=== PATIENT | female | born 1980 | race Caucasian/White ===

== ENCOUNTER → 2017-08-30 | Outpatient (REF) ==
[~2017-08-30] MED LIST: ACE500 PO; ALB17R INH; ASPI-1017 PO; CEP500 PO; CIPR-326 PO; CLI150 PO; CYCL10TA29 PO; DESV50TA9 PO; DIC10 PO; DIPH-740 PO; DM H PO; DM H180L19 PO; DOX100 PO; DOXY-179 PO; DOXY150T6 PO; ERYT-83 PO; ESGIC; FERR-53 PO; GABA-549 PO; GUAI100L15 PO; GUAI480S48 PO; HYDEL PO; HYDR-4228 PO; HYDR473S4 PO; IBU600 PO; IBU800 PO; IBUP-1618 PO; IBUP-56 PO; IBUP800T37 PO; KET10 PO; LAN30PT FT; LEV500 PO; LOR5 PO; LOR5/325 PO; MELO-149 PO; METH4TAB66 PO; METR-160 PO; MULT1CAP59 PO; NAP500; NAPR-1043 PO; NAPR-723 PO; NAPR-744 PO; NIC10R INH; NO ROUTINE MEDS; OMEP20CA68 PO; ONDA4TAB PO; PEN250 PO; PER PO; PHEN120S16 PO; PRE20 PO; PRED20TA6 PO; PRO25 PO; PSEU120T71 PO; TRA50 PO; TRAM-420 PO; TRAZ-156 PO; TRAZ150T8 PO; TRI05T TP; VALA100059 PO
--- NOTE | 2017-08-30 13:51 | RADIOLOGY IMAGING REPORT ---
[place] [facility] [place] NAME: Deedee Leiva : 1980 MR: [id number] V: [id number] EXAM DATE: ORDERING PHYSICIAN: DRAKE RUDOLPH TECHNOLOGIST: [place] [facility] [place] Deedee Leiva : 1980 Visit/Account:[id number] Date of Sevice: 08/30/2017 EXAMINATION: Abdominal ultrasound complete HISTORY: Abdomen pain, gas and bloating x6 months COMPARISON: February 06, 2016 FINDINGS: Gallbladder: No stones, wall thickening, pericholecystic fluid or sonographic Ram sign. Liver: Negative. Common duct: Normal measuring 5.3 mm. Pancreas: Negative. Spleen: Normal in size and echogenicity measuring 9.5 cm in length. Kidneys: Normal in size and echogenicity, the right measures 11.1 cm in length, and the left 11.4 cm . No hydronephrosis. Upper abdominal aorta and IVC: Negative. Ascites: None. IMPRESSION: Unremarkable abdomen ultrasound Report Dictated By: Brandy Sparks MD at 08/30/2017 1:32 PM Report E-Signed By: Brandy Sparks MD at 08/30/2017 1:47 PM WSN:[email or web address]
== END ==
LOC: US 01:00
PROVIDERS: ATTEND Nurse Practitioner
DX: R10.9 Unspecified abdominal pain (principal)
CPT/HCPCS: 76700

== ENCOUNTER → 2018-04-16 | Outpatient (REF) ==
[~2018-04-16] MED LIST changes: -TRAZ-156 PO; +TRAZ50TA34 PO
--- NOTE | 2018-04-16 13:49 | RADIOLOGY IMAGING REPORT ---
[place] [facility] [place] NAME: Deedee Leiva : 1980 MR: [id number] V: [id number] EXAM DATE: ORDERING PHYSICIAN: REYNALDO RETANA TECHNOLOGIST: Location: [facility] Patient: Deedee Leiva : 1980 Visit/Account:[id number] Date of Sevice: 04/16/2018 Exam type: THORACIC SPINE 2 VIEW History: Low back pain Comparison: None. Findings: There is no evidence of acute fracture or subluxation in the thoracic spine. There is a minimal dext roconvex curvature. No significant spondylotic changes seen IMPRESSION: 1. Minimal dextroconvex curvature to the thoracic spine although no evidence of acute fracture or estrada bluxation Report Dictated By: Brandy Sparks MD at 04/16/2018 1:43 PM Report E-Signed By: Brandy Sparks MD at 04/16/2018 1:44 PM WSN:[email or web address]
== END ==
LOC: RAD 11:49
PROVIDERS: ATTEND Orthopaedic Surgery Orthopaedic Surgery of the Spine
DX: M54.6 Pain in thoracic spine (principal)
CPT/HCPCS: 72070

== ENCOUNTER 2018-07-20 17:03 | Emergency (ER) | payer SELFPAY ==
[~2018-07-20 17:03] MED LIST changes: -METR-160 PO; +METR500T15 PO
[2018-07-20] MEDS ORDERED: TRAM-420 PO (17:20)
[2018-07-20] MEDS ORDERED: CYCL10TA29 PO (17:20)
[2018-07-20] MEDS ORDERED: GABA-549 PO (17:20)
--- NOTE | 2018-07-20 17:33 | ER Report ---
History and Physical Time Seen By MD: 17:22 Hx. of Stated Complaint: headaches off and on for a week. now has right sided facial numbness and weakness while walking (JIN RENE MD) HPI/ROS CHIEF COMPLAINT: Headache HISTORY OF PRESENT ILLNESS: [must have 4 elements] REVIEW OF SYSTEMS: Constitutional: [No fever, no chills.] Eyes: [No discharge.] ENT: [No sore throat.] Cardiovascular: [No chest pain, no palpitations.] Respiratory: [No cough, no shortness of breath.] Gastrointestinal: [No abdominal pain, no vomiting.] Genitourinary: [No hematuria.] Musculoskeletal: [No back pain.] Skin: [No rashes.] Neurological: [No headache.] (JNI RENE MD) Allergies: Coded Allergies: No Known Drug Allergies (Verified , 05/10/17) Home Meds Reported Medications Tramadol Hcl (TRAMADOL HCL) 50 Mg Tablet, 50-100 MG PO PRN, TAB 07/20/18 Cyclobenzaprine Hcl (CYCLOBENZAPRINE HCL) 10 Mg Tablet, 10 MG PO PRN, #9 TAB 07/20/18 Gabapentin (GABAPENTIN) 300 Mg Capsule, 300 MG PO BID, CAPSULE 07/20/18 Nicotine (NICOTROL) 10 Mg/Inh Ctr, 10 MG INH PRN PRN for NICOTINE REPLACEMENT 05/12/17 Ferrous Sulfate (FERROUS SULFATE) 325 Mg Tablet, 325 MG PO QDAY TAKE WITH FOOD 05/12/17 Trazodone Hcl (TRAZODONE HCL) 150 Mg Tablet, 50-150 MG PO QHS TAKE 50-150 MG ABOUT AN HOUR BEFORE YOU PLAN TO GO TO SLEEP. 05/12/17 Multivitamin (MULTIVITAMINS) 1 Each Capsule, 1 EACH PO, CAPSULE 04/04/16 Past Medical/Surgical History Patient has a past medical history of pneumonia, sciatica, substance abuse, depression, anxiety, bipolar. Patient has a surgical history of anal fissure reconstruction, tubal ligation, tonsillectomy. History of methamphetamine abuse with recent relapse as well as opiate addiction had a period of sobriety for approximately 2 years. (JIN RENE MD) Hx Smoking: Yes Smoking Status: Current: Every Day Smoker Exposure to Second Hand Smoke?: Yes Hx Substance Use Disorder: Yes (in recovery) Hx Alcohol Use: No (JIN RENE MD) Constitutional Vital Sign - Last 24 Hours 07/20/18 07/20/18 07/20/18 07/20/18 17:09 17:11 17:33 18:33 Temp 97.9 Pulse 88 73 B/P (MAP) 123/105 (111) Pulse Ox 95 96 07/20/18 07/20/18 07/20/18 07/20/18 18:33 19:54 21:41 21:46 Pulse 73 78 B/P (MAP) 121/91 (101) 106/74 (85) Pulse Ox 96 97 ([facility]) Physical Exam General/Constitutional: Patient is awake, alert, nontoxic and in no acute respiratory distress. Head: Normocephalic and atraumatic. Eyes: Conjunctival clear, Pupils are equal and reactive to light. Extraocular muscles are intact and symmetrical. Sclera are clear and anicteric. Ears:External canals are clear. Tympanic membranes are clear with normal landmarks and light reflex. Nares: No rhinorrhea or bleeding. Turbinates are pink and moist. Oropharyngeal: Mucous membranes are moist. There is no pharyngeal erythema or exudate. There are no palatal petechiae. Uvula is midline and symmetrical. Neck: Supple, no adenopathy. Cardiovascular: Heart is regular rate and rhythm without audible murmurs, rubs or gallops. Pulmonary: Lungs are clear to auscultation bilaterally. There are no wheezes, rales, or rhonchi. Chest rise is symmetrical Abdomen: Soft, nontender, no guarding or peritoneal signs. Extremities: No gross deformities, No peripheral cyanosis. Able to move all 4 extremities. Neuro: Alert and oriented X3, Cranial nerves 2 thru 12 are intact and symmetrical. Skin: No rashes, skin is warm dry and well perfused. (JIN RENE MD) Medical Decision Making Data Points Result Diagram: 07/20/18 1745 07/20/18 1745 Laboratory Hematology Test 07/20/18 17:45 Red Blood Count 5.16 M/uL (4.17-5.56) Mean Corpuscular Volume 87.8 fL (80.0-96.0) Mean Corpuscular Hemoglobin 29.9 pg (26.0-33.0) Mean Corpuscular Hemoglobin Concent 34.1 g/dL (32.0-36.0) Red Cell Distribution Width 19.3 % (11.5-14.5) Mean Platelet Volume 8.1 fL (7.2-11.1) Neutrophils (%) (Auto) % (39.4-72.5) Lymphocytes (%) (Auto) % (17.6-49.6) Monocytes (%) (Auto) % (4.1-12.4) Eosinophils (%) (Auto) % (0.4-6.7) Basophils (%) (Auto) % (0.3-1.4) Nucleated RBC Relative Count (auto) /100WBC Neutrophils # (Auto) K/uL (2.0-7.4) Lymphocytes # (Auto) K/uL (1.3-3.6) Monocytes # (Auto) K/uL (0.3-1.0) Eosinophils # (Auto) K/uL (0.0-0.5) Basophils # (Auto) K/uL (0.0-0.1) Nucleated RBC Absolute Count (auto) K/uL Neutrophils % (Manual) 52 % (39.4-72.5) Lymphocytes % (Manual) 30 % (17.6-49.6) Monocytes % (Manual) 7 % (4.1-12.4) Eosinophils % (Manual) 11 % (0.4-6.7) Basophils % (Manual) 0 % (0.3-1.4) Platelet Estimate Normal Anisocytosis 1+ Sodium Level 137 mmol/L (137-145) Potassium Level 4.0 mmol/L (3.5-5.0) Chloride Level 108 mmol/L (98-107) Carbon Dioxide Level 26 mmol/L (22-31) Blood Urea Nitrogen 12 mg/dl (7-18) Creatinine 0.60 mg/dl (0.52-1.04) Glomerular Filtration Rate Calc > 60.0 Random Glucose 80 mg/dl (75-110) Calcium Level 9.1 mg/dl (8.4-10.2) Total Bilirubin 0.3 mg/dl (0.2-1.3) Aspartate Amino Transf (AST/SGOT) 43 U/L (0-35) Alanine Aminotransferase (ALT/SGPT) 43 U/L (0-56) Alkaline Phosphatase 57 U/L (0-126) Total Protein 7.0 g/dl (6.3-8.2) Albumin 4.3 g/dl (3.5-5.0) Human Chorionic Gonadotropin, Qual Negative (NEGATIVE) Chemistry Test 07/20/18 17:45 White Blood Count 5.4 k/uL (4.5-11.0) Red Blood Count 5.16 M/uL (4.17-5.56) Hemoglobin 15.4 g/dL (12.0-16.0) Hematocrit 45.3 % (34.0-47.0) Mean Corpuscular Volume 87.8 fL (80.0-96.0) Mean Corpuscular Hemoglobin 29.9 pg (26.0-33.0) Mean Corpuscular Hemoglobin Concent 34.1 g/dL (32.0-36.0) Red Cell Distribution Width 19.3 % (11.5-14.5) Platelet Count 292 K/uL (150-450) Mean Platelet Volume 8.1 fL (7.2-11.1) Neutrophils (%) (Auto) % (39.4-72.5) Lymphocytes (%) (Auto) % (17.6-49.6) Monocytes (%) (Auto) % (4.1-12.4) Eosinophils (%) (Auto) % (0.4-6.7) Basophils (%) (Auto) % (0.3-1.4) Nucleated RBC Relative Count (auto) /100WBC Neutrophils # (Auto) K/uL (2.0-7.4) Lymphocytes # (Auto) K/uL (1.3-3.6) Monocytes # (Auto) K/uL (0.3-1.0) Eosinophils # (Auto) K/uL (0.0-0.5) Basophils # (Auto) K/uL (0.0-0.1) Nucleated RBC Absolute Count (auto) K/uL Neutrophils % (Manual) 52 % (39.4-72.5) Lymphocytes % (Manual) 30 % (17.6-49.6) Monocytes % (Manual) 7 % (4.1-12.4) Eosinophils % (Manual) 11 % (0.4-6.7) Basophils % (Manual) 0 % (0.3-1.4) Platelet Estimate Normal Anisocytosis 1+ Glomerular Filtration Rate Calc > 60.0 Calcium Level 9.1 mg/dl (8.4-10.2) Total Bilirubin 0.3 mg/dl (0.2-1.3) Aspartate Amino Transf (AST/SGOT) 43 U/L (0-35) Alanine Aminotransferase (ALT/SGPT) 43 U/L (0-56) Alkaline Phosphatase 57 U/L (0-126) Total Protein 7.0 g/dl (6.3-8.2) Albumin 4.3 g/dl (3.5-5.0) Human Chorionic Gonadotropin, Qual Negative (NEGATIVE) ([facility]) EKG/Imaging Imaging EXAMINATION: CT head without IV contrast HISTORY: Headache. TECHNIQUE: Axial CT images of the head were obtained from the vertex to the skull base without IV contrast, with coronal and sagittal 2D reconstructed images. One of the following dose optimization techniques was utilized in the performance of this exam: Automated exposure control; adjustment of the mA and/or kV according to the patient's size; or use of an iterative reconstructi on technique. Specific details can be referenced in the facility's radiology CT exam operational policy. COMPARISON: MR brain without and with contrast 03/06/2017. FINDINGS: The intracranial contents are unremarkable. No CT evidence of intracranial hemorrhage, mass lesion, or acute infarct. No midline shift or extra-axial fluid collections. Ray-white differentiation is maintained. The calvarium is intact. The visualized paranasal sinuses and mastoid air cells are unopacified. IMPRESSION: Unremarkable noncontrast head CT. Report Dictated By: Iron Pike MD at 07/20/2018 6:47 PM MR BRAIN/BRAIN STEM W/ & W/O CON HISTORY: Numbness and pain of right side of face and scalp. Heaviness on right side. COMPARISON: Head CT earlier same evening and 08/05/2008. Previous brain MR 03/06/2017. TECHNIQUE: Multi-planar, multi-sequence brain MR was performed without and with contrast. CONTRAST: 14 mL intravenous MultiHance. FINDINGS: Brain: There is no restricted diffusion to indicate acute or early subacute ischemia. No intracranial hemorrhage, mass, or edema. No abnormal enhancement. Ventricles and sulci: Sulci are normal. The ventricles are normal in size and configuration. Vessels: The vascular flow voids are normal. Osseous structures: Intact. Paranasal sinuses and mastoids: There is mild mucosal thickening of the ethmoid and maxillary sinuses. There is a mucous retention pseudocyst in the inferior right frontal sinus. Mastoids are clear. Slight leftward nasal septal bowing. Orbits and soft tissues: Normal. IMPRESSION: 1. No acute process or findings to account for patient's symptoms. 2. Maxillary and ethmoid sinus disease. Report Dictated By: Carline Au at 07/20/2018 9:15 PM (ZOHRA PIMENTEL MD) ED Course/Re-evaluation Clinical Indication for ER IV: IV Access ED Course I assumed care of this patient from Dr. Rene this afternoon at shift change. She had numbness and tingling of the right scalp and forehead as well as a heavy feeling throughout her right body when she woke up this morning. She still has a little bit of heaviness but there is no numbness anywhere else. She still has the paresthesias/numbness on the right scalp. I repeated an neuro exam which was negative other than the numbness on the right scalp. Head CT was negative. An MRI of the brain with and without contrast was obtained and this was negative as well. Cause of the scalp paresthesia is irritation of the peripheral nerve, likely due to viral or other inflammatory condition. Recommended follow-up with primary care and this will likely resolve on its own but she could consider seeing neurology, especially if it is not improving Decision to Disposition Date: Jul 20, 2018 Decision to Disposition Time: 21:45 (ZOHRA PIMENTEL MD) Depart Departure Latest Vital Signs Vital Signs Date Time Temp Pulse Resp B/P (MAP) Pulse Ox O2 Delivery O2 Flow Rate FiO2 07/20/18 21:46 78 97 07/20/18 21:41 106/74 (85) 07/20/18 17:11 97.9 (ZOHRA PIMENTEL MD) Impression: Primary Impression: Paresthesia of skin Condition: Improved Disposition: HOME OR SELF-CARE Patient Instructions: Paresthesia (ED) Additional Instructions: We do not know the cause of the numbness of your scalp. MRI and CT were normal and no sign of stroke or other neurodegenerative diseased. Follow-up with primary care next week. Consider follow-up with neurology for further evaluation is not resolving. JIN RENE MD Jul 20, 2018 17:33 ZOHRA PIMENTEL MD Jul 20, 2018 18:09
[2018-07-20] MEDS ORDERED: NS(*) 0.9% 1000 ML BAG 1,000 ML IV ONE (17:36)
[2018-07-20] MEDS ORDERED: ONDANSETRON 4 MG/2 ML VIAL IVP ONE (17:40)
[2018-07-20 17:55] LABS: PLATELET COUNT, AUTOMATED 292 K/uL (150-450)
--- NOTE | 2018-07-20 18:55 | RADIOLOGY IMAGING REPORT ---
FACILITY: [facility] [place] PATIENT NAME: Deedee Leiva : 1980 MR: [id number] V: [id number] EXAM DATE: ORDERING PHYSICIAN: JIN CROWELL TECHNOLOGIST: Location: [facility] [place] Patient: Deedee Leiva : 1980 Visit/Account:[id number] Date of Sevice: 07/20/2018 EXAMINATION: CT head without IV contrast HISTORY: Headache. TECHNIQUE: Axial CT images of the head were obtained from the vertex to the skull base without IV c ontrast, with coronal and sagittal 2D reconstructed images. One of the following dose optimization techniques was utilized in the performance of this exam: Autom ated exposure control; adjustment of the mA and/or kV according to the patient's size; or use of an i terative reconstruction technique. Specific details can be referenced in the facility's radiology C T exam operational policy. COMPARISON: MR brain without and with contrast 03/06/2017. FINDINGS: The intracranial contents are unremarkable. No CT evidence of intracranial hemorrhage, mass lesion, or acute infarct. No midline shift or extra-axial fluid collections. Ray-white differentiation is maintained. The calvarium is intact. The visualized paranasal sinuses and mastoid air cells are unopacified. IMPRESSION: Unremarkable noncontrast head CT. Report Dictated By: Iron Pike MD at 07/20/2018 6:47 PM Report E-Signed By: Iron Pike MD at 07/20/2018 6:51 PM WSN:[id number]
[2018-07-20] MEDS ORDERED: GADOBENATE 529MG/1ML 15ML VIAL IVP ONE (20:48)
--- NOTE | 2018-07-20 21:28 | RADIOLOGY IMAGING REPORT ---
FACILITY: [facility] PATIENT NAME: Deedee Leiva : 1980 MR: [id number] V: [id number] EXAM DATE: ORDERING PHYSICIAN: ZOHRA PIMENTEL TECHNOLOGIST: [place] [facility] [place] Deedee Leiva : 1980 Visit/Account:[id number] Date of Sevice: 07/20/2018 MR BRAIN/BRAIN STEM W/ & W/O CON HISTORY: Numbness and pain of right side of face and scalp. Heaviness on right side. COMPARISON: Head CT earlier same evening and 08/05/2008. Previous brain MR 03/06/2017. TECHNIQUE: Multi-planar, multi-sequence brain MR was performed without and with contrast. CONTRAST: 14 mL intravenous MultiHance. FINDINGS: Brain: There is no restricted diffusion to indicate acute or early subacute ischemia. No intracranial hemorrhage, mass, or edema. No abnormal enhancement. Ventricles and sulci: Sulci are normal. The ventricles are normal in size and configuration. Vessels: The vascular flow voids are normal. Osseous structures: Intact. Paranasal sinuses and mastoids: There is mild mucosal thickening of the ethmoid and maxillary sinuses . There is a mucous retention pseudocyst in the inferior right frontal sinus. Mastoids are clear. Sli ght leftward nasal septal bowing. Orbits and soft tissues: Normal. IMPRESSION: 1. No acute process or findings to account for patient's symptoms. 2. Maxillary and ethmoid sinus disease. Report Dictated By: Carline Au at 07/20/2018 9:15 PM Report E-Signed By: Carline Au at 07/20/2018 9:25 PM WSN:[id number]
[2018-07-20 21:41] VITALS: BP 106/74
== END 2018-07-20 21:59 | disposition home or self-care (01) ==
LOC: ER 17:20
DX: R20.2 Paresthesia of skin (principal)
CPT/HCPCS: 70450; 70553; 84703; 85025; 96361; 96374; 99284; A9577; J2405; J7030; 82040; 82247; 82310; 82374; 82435; 82565; 82947; 84075; 84132; 84155; 84295; 84450; 84460; 84520